=== PATIENT | male | born 1975 | race Asian ===

== ENCOUNTER 2023-03-22 12:55 | Outpatient (REF) | payer OTHER, SELFPAY ==
--- NOTE | ~2023-03-22 | XR_ITS ---
EXAMINATION: Bilateral foot x-ray CLINICAL INFORMATION: Pain COMPARISON: None. TECHNIQUE: 3 views of each foot FINDINGS: Bone alignment is normal. No fracture or dislocation. Joint spaces are normal. There are accessory peroneal ossicles. Small calcaneal spurs. Soft tissues are otherwise normal. XR/XR foot RT 2V IMPRESSION: Small bilateral calcaneal spurs.
--- NOTE | ~2023-03-22 | XR_ITS ---
EXAMINATION: Bilateral foot x-ray CLINICAL INFORMATION: Pain COMPARISON: None. TECHNIQUE: 3 views of each foot FINDINGS: Bone alignment is normal. No fracture or dislocation. Joint spaces are normal. There are accessory peroneal ossicles. Small calcaneal spurs. Soft tissues are otherwise normal. XR/XR foot LT 2V IMPRESSION: Small bilateral calcaneal spurs.
[2023-03-22 15:30] LABS: Erythrocyte Sedimentation Rate 7 MM/HR (0-15)
[2023-03-22 15:34] LABS: Alanine Aminotransferase 20 U/L (0-40); Albumin Level 4.3 g/dL (3.5-5.0); Alkaline Phosphatase 116 U/L (39-117); Anion Gap 14 (12-20); Aspartate Amino Transferase 19 U/L (5-37); Bilirubin Total 0.5 mg/dL (0.0-1.0); Blood Urea Nitrogen 18 mg/dL (9-16); Calcium 9.4 mg/dL (8.4-10.2); Carbon Dioxide 25 mmol/L (22-29); Chloride 107 mmol/L (96-108); Estimated Glomerular Filt Rate > 60; Glucose Random 100 mg/dL (60-115); Potassium 4.5 mmol/L (3.3-5.1); Sodium 141 mmol/L (135-145); Total Protein 7.5 g/dL (6.5-8.0)
[2023-03-22 15:55] LABS: Folate 13.2 ng/mL (> or = 4.0); Vitamin B12 1748 pg/mL (200-900)
[2023-03-24 11:09] LABS: Lyme Abs Screen <0.90 index
== END 2023-03-22 12:56 | disposition home or self-care (01) ==
LOC: HO.LAB 12:55
PROVIDERS: PCP Hospitalist; Visit Provider Psychiatry & Neurology Neurology
DX: G62.9 Polyneuropathy, unspecified (principal); M79.671 Pain in right foot
CPT/HCPCS: 36415; 73620; 80053; 82607; 82746; 85652; 86617; 86618

== ENCOUNTER 2025-02-19 16:15 | Outpatient (REF) | payer OTHER, SELFPAY ==
--- OUTSIDE RECORDS SUMMARY | 2025-02-19 18:34 | XMS_ITS | Continuity of Care Document ---
Author Organization [facility] Address [address] [place] [address] Phone Care Team Providers Care Senior Project Controls Specialist Name Role Phone Unavailable Unavailable Unavailable Procedures Procedure Date OV, New Pt, Level IV Diagnostic Nasal Endoscopy Advance Directives Directive Yes / No Effective Date File Name No Information Encounters Encounter Description Practice Location Reason(s) For Visit Diagnoses Date Provider Providers Copied on Encounter OV, New Pt, Level IV [facility], [address], [place], [place], [id number], tel:[phone] [facility] 8200 9 No Information Family History Family Member Type Diagnosis Age At Onset No Information Payers Payer name Insurance type Covered green party ID Authoriza tion(s) No Information Social History Type Description Quantity Date Captured Comments Sex Male Smoking Status No Information Chief Complaint And Reason For Visit No Information Reason For Referral Reason For Referral No Information History Of Present Illness Encounter Date Complaint History Of Prese nt Illness No Information Functional Status Date Functional Assessmen t No Information Instructions Date Instruction Additional Infor mation No Information Assessments Type Assessment Date No Information Patient Care Teams Name Effective Dates (start - stop) Status Members No Information
--- OUTSIDE RECORDS SUMMARY | 2025-02-19 18:34 | XMS_ITS | Patient Health Record ---
Author Organization [facility] Address [address] [place] [address] Care Team Providers Care Dispensing Optician Name Role Phone HARSH THOMAS Primary Care Provider Jomar Lopez Unavailable [phone] Allergies Allergen (clinical drug ingredient) Drug/Non Drug Allergy documented on EMR Reaction Allergy Type Onset Date Status trazodone Trazodone HCl stomach upset Drug Allergy Active Results Component Value Reference Range Notes Basic Metabolic Panel (7)-30 0000 Reviewed date:06/28/2024 04:30:11 PM Interpretation: Performing Lab:[facility] [place], [facility], Phone - [phone], Director - MDJodry Notes/Report: Glucose 101 70-99 mg/dL BUN 14 6-24 mg/dL Creatinine 0.80 0.76-1.27 mg/dL eGFR 108 >59 mL/min/1.73 BUN/Creatinine Ratio 18 9-20 Sodium 139 134-144 mmol/L Potassium 4.4 3.5-5.2 mmol/L Chloride 102 96-106 mmol/L Carbon Dioxide, Total 24 20-29 mmol/L Lipid Panel-[id number] Reviewed date:06/28/2024 04:32:27 PM Interpretation: Performing Lab:[facility] [place], [address] [place], [place], Phone - [phone], Director - MDJodry Notes/Report: Cholesterol, Total 258 100-199 mg/dL Triglycerides 147 0-149 mg/dL HDL Cholesterol 50 >39 mg/dL VLDL Cholesterol Isacc 27 5-40 mg/dL LDL Chol Calc ([facility]) 181 0-99 mg/dL CBC With Differential/Platel et-[id number] Reviewed date:06/26/2024 12:37:48 PM Interpretation: Performing Lab:[facility], [address] [place] [address], Phone - [phone], Director - Malcolm Notes/Report: WBC 6.9 3.4-10.8 x10E3/uL RBC 5.24 4.14-5.80 x10E6/uL Hemoglobin 14.8 13.0-17.7 g/dL Hematocrit 44.1 37.5-51.0 % MCV 84 79-97 fL MCH 28.2 26.6-33.0 pg MCHC 33.6 31.5-35.7 g/dL RDW 13.4 11.6-15.4 % Platelets 239 150-450 x10E3/uL Neutrophils 48 Not Estab. % Lymphs 41 Not Estab. % Monocytes 7 Not Estab. % Eos 3 Not Estab. % Basos 1 Not Estab. % Neutrophils (Absolute) 3.4 1.4-7.0 x10E3/uL Lymphs (Absolute) 2.9 0.7-3.1 x10E3/uL Monocytes(Absolute) 0.5 0.1-0.9 x10E3/uL Eos (Absolute) 0.2 0.0-0.4 x10E3/uL Baso (Absolute) 0.1 0.0-0.2 x10E3/uL Immature Granulocytes 0 Not Estab. % Immature Grans (Abs) 0.0 0.0-0.1 x10E3/uL Lipid Panel-[id number] Reviewed date:10/21/2024 10:19:05 AM Interpretation: Performing Lab:[facility], [address] [place] [address], Phone - [phone], Director - Malcolm Notes/Report: Cholesterol, Total 257 100-199 mg/dL Triglycerides 206 0-149 mg/dL HDL Cholesterol 44 >39 mg/dL VLDL Cholesterol Isacc 39 5-40 mg/dL LDL Chol Calc ([facility]) 174 0-99 mg/dL Hemoglobin [id number] Reviewed date:10/21/2024 07:49:29 AM Interpretation: Performing Lab:[facility], [address] [place] [address], Phone - [phone], Director - Malcolm Notes/Report: Hemoglobin A1c 6.1 4.8-5.6 % . Prediabetes: 5.7 - 6.4 Diabetes: >6.4 Glycemic control for adults with diabetes: <7.0 Reason For Referral Reason Persistent GERD Diagnosis 1 Gastro-esophageal re flux disease without esophagitis (K21.9) Referral Organization [facility] Referring Provider First Name Jomar Referring Provider Last Name John Referred Provider Specialty Gastroentero mignon General Notes Referral faxed to [facility]. Please call patient to schedule.Magdaleno Christy 12/18/2024 11:47:59 AM > Referral Priority Routine Medications Medication SIG (Take, Route, Frequency, Duration) Notes Start Date End Date Status Omeprazole 40 MG TAKE 1 CAPSULE BY MOUTH EVERY DAY 30 MINUTES BEFORE MORNING MEAL for 90 Active Ezetimibe 10 MG 1 tablet Orally Once a day for 90 days 10/24/2024 Active Mirtazapine 15 MG 1 tablet at bedtime Orally Once a day for 30 day(s) 11/26/2018 Not-Taking Fluticasone Propionate 50 MCG/ACT 1 spray in each nostril Nasally Once a day for 90 days Active Fish Oil 1000 MG 1-2 capsule Orally Once a day Active Claritin 10 MG 1 tablet Orally twic e a day for 10 days 02/10/2021 Not-Taking Amitriptyline HCl 10 MG 1 tablet at bedt diogo Orally Once a day for 30 day(s) 08/09/2022 Active Melatonin 5 MG 1 tablet at bedtime as needed Orally Not-Taking SUMAtriptan Succinate 25 MG TAKE 1 TABLET BY MOUTH TWICE A DAY WITH AT LEAST 2 HOURS BETWEEN DOSES NEEDED FOR 30 DAYS for 24 Not-Taking tiZANidine HCl 4 MG 1 tablet as needed Orally Three times a day for 7 days 07/26/2021 Not-Taking Vitamin B12 100 MCG as directed Orally Once a day Not-Taking Hydrocortisone 2.5 % 1 application Externally Once a day for 30 day(s) 07/26/2021 Not-Taking Atorvastatin Calcium 40 MG TAKE 1 TABLET BY MOUTH EVERY DAY FOR 30 DAYS for 90 Active Diclofenac Sodium 75 MG 1 tablet as need ed Orally Twice a day 06/27/2023 Not-Taking Immunizations Vaccine Route Administration Date Status Comme nts COVID 19 Pfizer Unknown 03/18/2021 Administered COVID 19 Pfizer Unknown 04/08/2021 Administered IPV Unknown 11/28/2018 Administered Meningococcal MCV4O (CVX 114) Unknown 11/28/2018 Admini stered Social History Tobacco Use: Social History Observation Description Date Details (start date - stop date) Former Smoker NA - NA Tobacco Use/Smoking Question Answer Notes Are you a former smoker How long has it been since you last smoked? 5-10 years Alcohol Screen (Audit-C) Question Answer Notes Did you have a drink containing alcohol in the p ast year? No Points 0 Interpretation Negative Problems Problem Type SNOMED Code ICD Code Onset Dates Problem Status W/U Status Risk Notes Problem Mixed hyperlipidemia (322782263) Mixed hyperlipidemia (E78.2) Active confirmed Problem Migraine with aura (7735559) Migraine with aura, not intractable, without status migrainosus (G43.109) Active confirmed Problem Insomnia (110259205) Insomnia, unspecified (G47.00) Active confirmed Problem Gastro-esophageal reflux disease without esophagitis (626858597) Gastro-esophageal reflux disease without esophagitis (K21.9) Active confirmed Problem Abdominal pain (35495560) Unspecified abdominal pain (R10.9) Active confirmed Problem Flatulence (974594752) Flatulence (R14.3) Active confirmed Problem Fatigue (32574013) Other fatigue (R53.83) Active confirmed Problem Impaired fasting glucose (681537327) Impaired fasting glucose (R73.01) Active confirmed Problem History and physical examination, follow-up (393755786) Encounter for follow-up examination after completed treatment for conditions other than malignant neoplasm (Z09) Active confirmed Problem 973263813 Acute pancreatitis (K85.90) Active confirmed Problem History of disease caused by Severe acute respiratory syndrome coronavirus 2 (situation) (1077275283392286 05) Personal history of COVID-19 (Z86.16) Active confirmed Vital Signs Heart Rate 82 /min 01/22/2025 Temperature 98.0 degrees Fahrenheit 01/22/2025 Blood pressure diastolic 74 mm Hg 01/22/2025 Oximetry 97 % 01/22/2025 Height 65.39 in 01/22/2025 Blood pressure systolic 120 mm Hg 01/22/2025 Weight 152.8 lbs 01/22/2025 BMI 25.12 kg/m2 01/22/2025 Encounters Encounter Location Date Provider Diagnosis [facility] [address] [address] 07/02/2024 HARSH THOMAS Encounter for genera l adult medical examination without abnormal findings Z00.00 ; Mixed hyperlipidemia E78.2 ; Gastro-esophageal reflux disease without esophagitis K21.9 and Impaired fasting glucose R73.[address] [place] [address] 10/24/2024 Ghadeer Mazloum Mixed hyperlipidemia E78.2 ; Gastro-esophageal reflux disease without esophagitis K21.9 and Impaired fasting blood sugar R73.[address] [place] [address] 01/22/2025 Ghadeer Mazloum Mixed hyperlipidemia E78.2 ; Gastro-esophageal reflux disease without esophagitis K21.9 ; Impaired fasting glucose R73.01 and Migraine with aura, not intractable, without status migrainosus G43.[address] [place] [address] 2024 HARSH THOMAS Impaired fasting glucose R73.01 and Mixed hyperlipidemia E78.[address] [place] [address] 06/26/2024 Jomar Martium [address] [place] [address] 06/28/2024 HOUSE EDILBERTOL Mixed hyperlipidemia E78.2 and Impaired fasting glucose R73.[address] [place] [address] 10/21/2024 HARSH THOMAS [address] [place] [address] 12/18/2024 HARSH Roderick [address] [place] [address] 12/19/2024 AHRSH THOMAS Assessments Encounter Date Diagnosis (ICD Code) Assessment Notes Treatment Notes Treatment Clinical Notes Section Notes 2024 Impaired fasting glucose (ICD-10 - R73.01) 06/28/2024 Mixed hyperlipidemia (ICD-10 - E78.2) 07/02/2024 Encounter for general adult medical examination without abnormal findings (ICD-10 - Z00.00) Fredy is a 49-year-old gentleman with hyperlipidemia, migraine headaches and GERD here for annual physical. Plan is as follows: Hyperlipidemia. Total cholesterol 258. LDL 181. which is high. Continue Atorvastatin 20 MG at night. He takes fish oil pills. Recheck lipid panel Impaired fasting glucose. Fasting sugars 101. Dietary restrictions, regimental exercise and weight loss advised. check A1c. GERD. Continue Omeprazole 40 MG daily. Diarrhea. Most likely gluten sensitivity because it gets worse with gluten. Advised dietary restrictions Eye screening. 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 Dental screening. He sees dentist regularly. Colon cancer screening. He had his colonoscopy done every 10 years Immunizations. He is up-to-date on his COVID vaccinations. General health concerns discussed with patient. Scribe services used to formulate this note under HIPAA compliance and under [place] law mandated for scribe services. Patient aware of service. Verbal consent and written consent taken from the patient. Patient understands and verbalizes understanding of the scribes services and all questions answered regarding scribes services. Patient agrees to use of scribes services. 01/22/2025 Mixed hyperlipidemia (ICD-10 - E78.2) Fredy is a 49-year-old gentleman with hyperlipidemia, migraine headaches and GERD here for Follow-up. Plan as follows: HLD: - Continue atorvastatin 40 mg at bedtime. Advised on dietary changes. Check lipid panel GERD: - Had recent EGD/C-scope w/o abnormalities. He is currently on max dosage PPI.He is currently on Lactaid and gluten-free diet which she has noticed significant improvements and the chest pain and flatulence. Continue on diet modification. Impaired fasting glucose: - A1c of 6.1. Advised on dietary changes. Check A1c Piriformis syndrome - Reassurance is given. He can start taking Tylenol as needed, discussed doing stretches As well. I have rendered the services for this patient and Dr. Thomas, who did not see the patient but was available upon request on phone 01/22/2025 Gastro-esophageal reflux disease without esophagitis (ICD-10 - K21.9) Fredy is a 49-year-old gentleman with hyperlipidemia, migraine headaches and GERD here for Follow-up. Plan as follows: HLD: - Continue atorvastatin 40 mg at bedtime. Advised on dietary changes. Check lipid panel GERD: - Had recent EGD/C-scope w/o abnormalities. He is currently on max dosage PPI.He is currently on Lactaid and gluten-free diet which she has noticed significant improvements and the chest pain and flatulence. Continue on diet modification. Impaired fasting glucose: - A1c of 6.1. Advised on dietary changes. Check A1c Piriformis syndrome - Reassurance is given. He can start taking Tylenol as needed, discussed doing stretches As well. I have rendered the services for this patient and Dr. Thomas, who did not see the patient but was available upon request on phone 10/24/2024 Mixed hyperlipidemia (ICD-10 - E78.2) Fredy is a 49-year-old gentleman with hyperlipidemia, migraine headaches and GERD here for bloodwork review. Plan as follows: HLD: - Abnormal lipid panel. Increased Atorvastatin to 20mg. Advised on dietary changes. GERD: - Had recent EGD/C-scope w/o abnormalities. He is currently on max dosage PPI. He notices sxs are worse with gluten, tend to occur at night. Impaired fasting glucose: - A1c of 6.1. Advised on dietary changes. I have rendered the services for this patient and Dr. Thomas, who did not see the patient but was available upon request on phone 10/24/2024 Gastro-esophageal reflux disease without esophagitis (ICD-10 - K21.9) Fredy is a 49-year-old gentleman with hyperlipidemia, migraine headaches and GERD here for bloodwork review. Plan as follows: HLD: - Abnormal lipid panel. Increased Atorvastatin to 20mg. Advised on dietary changes. GERD: - Had recent EGD/C-scope w/o abnormalities. He is currently on max dosage PPI. He notices sxs are worse with gluten, tend to occur at night. Impaired fasting glucose: - A1c of 6.1. Advised on dietary changes. I have rendered the services for this patient and Dr. Thomas, who did not see the patient but was available upon request on phone 10/24/2024 Impaired fasting blood sugar (ICD-10 - R73.01) Fredy is a 49-year-old gentleman with hyperlipidemia, migraine headaches and GERD here for bloodwork review. Plan as follows: HLD: - Abnormal lipid panel. Increased Atorvastatin to 20mg. Advised on dietary changes. GERD: - Had recent EGD/C-scope w/o abnormalities. He is currently on max dosage PPI. He notices sxs are worse with gluten, tend to occur at night. Impaired fasting glucose: - A1c of 6.1. Advised on dietary changes. I have rendered the services for this patient and Dr. Thomas, who did not see the patient but was available upon request on phone 01/22/2025 Impaired fasting glucose (ICD-10 - R73.01) Fredy is a 49-year-old gentleman with hyperlipidemia, migraine headaches and GERD here for Follow-up. Plan as follows: HLD: - Continue atorvastatin 40 mg at bedtime. Advised on dietary changes. Check lipid panel GERD: - Had recent EGD/C-scope w/o abnormalities. He is currently on max dosage PPI.He is currently on Lactaid and gluten-free diet which she has noticed significant improvements and the chest pain and flatulence. Continue on diet modification. Impaired fasting glucose: - A1c of 6.1. Advised on dietary changes. Check A1c Piriformis syndrome - Reassurance is given. He can start taking Tylenol as needed, discussed doing stretches As well. I have rendered the services for this patient and Dr. Thomas, who did not see the patient but was available upon request on phone 07/02/2024 Mixed hyperlipidemia (ICD-10 - E78.2) Fredy is a 49-year-old gentleman with hyperlipidemia, migraine headaches and GERD here for annual physical. Plan is as follows: Hyperlipidemia. Total cholesterol 258. LDL 181. which is high. Continue Atorvastatin 20 MG at night. He takes fish oil pills. Recheck lipid panel Impaired fasting glucose. Fasting sugars 101. Dietary restrictions, regimental exercise and weight loss advised. check A1c. GERD. Continue Omeprazole 40 MG daily. Diarrhea. Most likely gluten sensitivity because it gets worse with gluten. Advised dietary restrictions Eye screening. 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 Dental screening. He sees dentist regularly. Colon cancer screening. He had his colonoscopy done every 10 years Immunizations. He is up-to-date on his COVID vaccinations. General health concerns discussed with patient. Scribe services used to formulate this note under HIPAA compliance and under [place] law mandated for scribe services. Patient aware of service. Verbal consent and written consent taken from the patient. Patient understands and verbalizes understanding of the scribes services and all questions answered regarding scribes services. Patient agrees to use of scribes services. 06/28/2024 Impaired fasting glucose (ICD-10 - R73.01) 2024 Mixed hyperlipidemia (ICD-10 - E78.2) 07/02/2024 Gastro-esophageal reflux disease without esophagitis (ICD-10 - K21.9) Fredy is a 49-year-old gentleman with hyperlipidemia, migraine headaches and GERD here for annual physical. Plan is as follows: Hyperlipidemia. Total cholesterol 258. LDL 181. which is high. Continue Atorvastatin 20 MG at night. He takes fish oil pills. Recheck lipid panel Impaired fasting glucose. Fasting sugars 101. Dietary restrictions, regimental exercise and weight loss advised. check A1c. GERD. Continue Omeprazole 40 MG daily. Diarrhea. Most likely gluten sensitivity because it gets worse with gluten. Advised dietary restrictions Eye screening. 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 Dental screening. He sees dentist regularly. Colon cancer screening. He had his colonoscopy done every 10 years Immunizations. He is up-to-date on his COVID vaccinations. General health concerns discussed with patient. Scribe services used to formulate this note under HIPAA compliance and under [place] law mandated for scribe services. Patient aware of service. Verbal consent and written consent taken from the patient. Patient understands and verbalizes understanding of the scribes services and all questions answered regarding scribes services. Patient agrees to use of scribes services. 01/22/2025 Migraine with aura, not intractable, without status migrainosus (ICD-10 - G43.109) Fredy is a 49-year-old gentleman with hyperlipidemia, migraine headaches and GERD here for Follow-up. Plan as follows: HLD: - Continue atorvastatin 40 mg at bedtime. Advised on dietary changes. Check lipid panel GERD: - Had recent EGD/C-scope w/o abnormalities. He is currently on max dosage PPI.He is currently on Lactaid and gluten-free diet which she has noticed significant improvements and the chest pain and flatulence. Continue on diet modification. Impaired fasting glucose: - A1c of 6.1. Advised on dietary changes. Check A1c Piriformis syndrome - Reassurance is given. He can start taking Tylenol as needed, discussed doing stretches As well. I have rendered the services for this patient and Dr. Thomas, who did not see the patient but was available upon request on phone 07/02/2024 Impaired fasting glucose (ICD-10 - R73.01) Fredy is a 49-year-old gentleman with hyperlipidemia, migraine headaches and GERD here for annual physical. Plan is as follows: Hyperlipidemia. Total cholesterol 258. LDL 181. which is high. Continue Atorvastatin 20 MG at night. He takes fish oil pills. Recheck lipid panel Impaired fasting glucose. Fasting sugars 101. Dietary restrictions, regimental exercise and weight loss advised. check A1c. GERD. Continue Omeprazole 40 MG daily. Diarrhea. Most likely gluten sensitivity because it gets worse with gluten. Advised dietary restrictions Eye screening. 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 Dental screening. He sees dentist regularly. Colon cancer screening. He had his colonoscopy done every 10 years Immunizations. He is up-to-date on his COVID vaccinations. General health concerns discussed with patient. Scribe services used to formulate this note under HIPAA compliance and under [place] law mandated for scribe services. Patient aware of service. Verbal consent and written consent taken from the patient. Patient understands and verbalizes understanding of the scribes services and all questions answered regarding scribes services. Patient agrees to use of scribes services. Plan Of Treatment Pending Test Test Name Order Date CBC 10/24/2018 CULTURE, STOOL 07/10/2023 COMPREHENSIVE METABOLIC PANEL 02/27/2020 COMPREHENSIVE METABOLIC PANEL 05/18/2023 H. PYLORI ANTIGEN, STOOL 09/18/2023 HEMOGLOBIN A1C 05/18/2023 HEMOGLOBIN A1C 02/27/2020 LIPID PANEL 02/27/2020 LIPID PANEL 05/18/2023 AMYLASE 10/24/2018 LIPASE 10/24/2018 Basic Metabolic Panel 10/24/2018 Hemoglobin A1C 09/24/2018 Hemoglobin [id number] 01/22/2025 Lipid Panel-[id number] 01/22/2025 Next Appt Details Provider Name:HARSH THOMAS , 02/24/2025 02:30:00 PM, [address] [place] [address], [phone], Provider Name:HARSH THOMAS , 07/08/2025 03:30:00 PM, [address] [facility] [facility] [address], [place], [address], Insurance Providers Payer Name Payer Address Payer Phone Subscriber Number Group Number Insured Name Patient Relationship to Insured Coverage Start Date Coverage End Date [facility]) 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
--- OUTSIDE RECORDS SUMMARY | 2025-02-19 18:34 | XMS_ITS ---
Author Organization [facility] Address [address] [place] [phone] Care Team Providers Care Conservation Agent Name Role Phone WILLIAM HARSH Primary Care Provider REASON FOR VISIT refill Medications Medication SIG (Take, Route, Frequency, Duration) Notes Start Date End Date Status Fluticasone Propionate 50 MCG/ACT SPRAY 1 SPRAY INTO EACH NOSTRIL EVERY DAY for 90 Active Encounters Encounter Location Date Provider Diagnosis [facility] [address] [phone] 12/19/2024 HARSH THOMAS Plan Of Treatment Medication Medication Name Sig Start Date Stop Date Notes Fluticasone Propionate 50 MCG/ACT SPRAY 1 SPRAY INTO EACH NOSTRIL EVERY DAY for 90 Next Appt Details Provider Name:HARSH THOMAS , 02/24/2025 02:30:00 PM, [address] [place] [address], [phone], Provider Name:HARSH THOMAS , 07/08/2025 03:30:00 PM, [address] [place] [address], [phone], Progress Notes * Juan C BELLAhDOB: 5 (49 yo M)Acc No.[id number]:12/19/2024 Patient:?Fredy BELLA :1975???Age:49 Y???Sex:Male Address:[address] [place] [address] katerina, [place] [address] * Refills? Refill Fluticasone Propionate Suspension, 50 MCG/ACT, 48 Milliliter, SPRAY 1 SPRAY INTO EACH NOSTRIL EVERY DAY, 90, Refills=3 * true * Date:? Generated for Nanci matias/Billy/Auroraitting on:?02/19/2025 06:33 PM EDT
--- OUTSIDE RECORDS SUMMARY | 2025-02-19 18:35 | XMS_ITS ---
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 Phone HARSH THOMAS Primary Care Provider Jomar Lopez Unavailable [phone] Allergies Allergen (clinical drug ingredient) Drug/Non Drug Allergy documented on EMR Reaction Allergy Type Onset Date Status trazodone Trazodone HCl stomach upset Drug Allergy Active REASON FOR VISIT 3 month f/u Medications Medication SIG (Take, Route, Frequency, Duration) Notes Start Date End Date Status Mirtazapine 15 MG 1 tablet at bedtime Orally Once a day for 30 day(s) 11/26/2018 Not-Taking Claritin 10 MG 1 tablet Orally twic e a day for 10 days 02/10/2021 Not-Taking Melatonin 5 MG 1 tablet at bedtime as needed Orally Not-Taking SUMAtriptan Succinate 25 MG TAKE 1 TABLET BY MOUTH TWICE A DAY WITH AT LEAST 2 HOURS BETWEEN DOSES NEEDED FOR 30 DAYS for 24 Not-Taking tiZANidine HCl 4 MG 1 tablet as needed Orally Three times a day for 7 days 07/26/2021 Not-Taking Atorvastatin Calcium 40 MG TAKE 1 TABLET BY MOUTH EVERY DAY FOR 30 DAYS for 90 Active Diclofenac Sodium 75 MG 1 tablet as need ed Orally Twice a day 06/27/2023 Not-Taking Omeprazole 40 MG TAKE 1 CAPSULE BY MOUTH EVERY DAY 30 MINUTES BEFORE MORNING MEAL for 90 Active Vitamin B12 100 MCG as directed Orally Once a day Not-Taking Hydrocortisone 2.5 % 1 application Externally Once a day for 30 day(s) 07/26/2021 Not-Taking Ezetimibe 10 MG 1 tablet Orally Once a day for 90 days 10/24/2024 Active Fluticasone Propionate 50 MCG/ACT 1 spray in each nostril Nasally Once a day for 90 days Active Fish Oil 1000 MG 1-2 capsule Orally Once a day Active Amitriptyline HCl 10 MG 1 tablet at bedt diogo Orally Once a day for 30 day(s) 08/09/2022 Active Social History Tobacco Use: Social History Observation [...] ast year? No Points 0 Interpretation Negative Vital Signs Temperature 98.0 degrees Fahrenheit 01/23/20 Oximetry 97 % 01/22/2025 Heart Rate 82 /min 01/22/2025 Blood pressure systolic 120 mm Hg 01/23/20 Blood pressure diastolic 74 mm Hg 025 Weight 152.8 lbs 01/22/2025 BMI 25.12 kg/m2 01/22/2025 Height 65.39 in 01/22/2025 Encounters Encounter Location Date Provider Diagnosis [facility] [address] [phone] 01/22/2025 Jomar Lopez Mixed hyperlipidemia E78.2 ; Gastro-esophageal reflux disease without esophagitis K21.9 ; Impaired fasting glucose R73.01 and Migraine with aura, not intractable, without status migrainosus G43.109 Assessments Encounter Date Diagnosis (ICD Code) Assessment Notes Treatment Notes Treatment Clinical Notes Section Notes 01/22/2025 Mixed hyperlipidemia (ICD-10 - E78.2) Fredy [...] was available upon request on phone 01/22/2025 Migraine with aura, not intractable, without [...] but was available upon request on phone Plan Of Treatment Pending Test Test Name Order Date Hemoglobin [id number] 01/22/2025 Lipid [id number] 01/22/2025 Next Appt Details Follow Up: 6 Months-f/up, Re ason: Provider Name:HARSH THOMAS , 02/24/2025 02:30:00 PM, [address] [place] [address], [phone], Provider Name:HARSH THOMAS , 07/08/2025 03:30:00 PM, [address] [place] [address], [phone], Progress Notes * Maikol BELLAOB: 5 (49 yo M)Acc No.[id number]:01/22/2025 Progress Notes Patient:?Fredy BELLA Appointment Provider:Patsy Lopez :1975???Age:49 Y???Sex:Male Sup ervising Provider:HARSH THOMAS MD Date:01/22/2025 Address:[address] [place], [place] [phone] Pcp:HARSH THOMAS Subjective: * Chief Complaints: * ???1. 3 month f/u. * HPI: ???Internal Medicine:?Fredy is a 49-year-old gentleman with hyperlipidemia, migraine headaches and GERD here for follow-up.?He is in his usual health state. He states that now he is on a strict diet, on lactaid and gluten free Diet. Has Noticed significant improvement and chest pain and Flatulence. He is physically active.? He states that when he lifts heavy material at his job he starts experiencing low back pain.? He also mentions that he has been experiencing pain and the Buttock area, specially with long sitting area. He denies any other active issues. * ROS:?General/Constitutional:?Overall health?Good.?Change in appetite?denies.?Chills?denies.?Fever?denies.?Night sweats?denies.?Sleep disturbance?denies.?Weight gain?denies.?Weight loss?denies.?Neurologic:?Difficulty speaking?denies.?Dizziness?denies.?Gait abnormality?denies.?Headache?denies.?Loss of strength?denies.?Memory loss?denies.?Seizures?denies.?Tingling/Numbness?denies ?.?Ophthalmologic:?Blurred vision?denies.?Discharge?denies.?Dry eye?denies.?Red eye?denies.?ENT:?Change in Voice?Denies.?Cold Symptoms?Denies.?Cough?Denies.?Dizziness?Denies.?Nasal Congestion?Denies.?Otalgia?Denies.?postnasal drip?Denies.?Blocked ear?denies.?Nosebleed?denies.?Snoring?denies.?Cardiovascular:?Diaphoresis?Denies.?Pedal Edema?Denies.?PND (Paroxsymal nocturnal dyspnea)?Denies.?Chest pain?denies.?Difficulty laying flat?denies.?Dyspnea on exertion?denies.?Heart murmur?denies.?Orthopnea?denies.?Respiratory:?Snoring?denies.?Asthma?denies.?Cough?denies.?Shortness of breath with exertion?denies.?Sputum production?denies.?Wheezing?denies.?Gastrointestinal:?Abdominal pain?denies.?Change in bowel habits?denies.?Constipation?denies.?Decreased appetite?denies.?Diarrhea?denies.?Heartburn?admits.?Nausea?denies.?Vomiting?kemi es.?Musculoskeletal:?tingling/numbness?Denies.?myalgias?Denies.?Joint Swelling?Denies.?extremeties?normal.?Arthritis?denies.?Back problems?denies.?Carpal tunnel?denies.?Joint stiffness?denies.?Muscle aches?denies.?Endocrine:?Bowel Changes?Denies.?Breast Discharge?Denies.?poor libido?Denies.?Cold intolerance?denies.?Excessive sweating?denies.?Excessive thirst?denies.?Frequent urination?denies.?Thyroid problems?denies.?Skin:?Bruising?Denies.?Eczema?denies.?Hair changes?denies.?Rash?denies.?Skin lesion(s)?denies.?Psychiatric:?Anxiety?denies.?Depressed mood?denies.?Difficulty sleeping?denies.?Nervous breakdown?denies.?Substance abuse?denies.?Urology:?blood in urine?denies.?burning on urination?denies.?difficulty urinating?denies.?discharge?denies.?dysuria?denies.? * Medical History:?Hypertrigly ceridemia, Acute pancreatitis secondary to hypertriglyceridemia, GERD, H. pylori infection and non-bismuth quadruple therapy, Personal history of COVID-19. * Surgical History:?broken jaw 1997-. * Hospitalization/Major Diagno stic Procedure:?acute pancreatitis 08/29/18. * Family History:?Father: dece ased, lung cancer, diagnosed with Diabetes.?Mother: alive, hypotension, diagnosed with Diabetes.?4 daughter(s) . .? * Social History:?Tobacco Use:?Tobacco Use/Smoking?Are you a?former smoker ?How long has it been since you last smoked??5-10 years ???Drugs/Alcohol:?Drugs?Have you used drugs other than those for medical reasons in the past 12 months??No ?Alcohol Screen (Audit-C)?Did you have a drink containing alcohol in the past year??No ?Points?0 ?Interpretation?Negative ???Miscellaneous:?Living with: spouse. ?Marital status: . 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 * Medications:?Taking Fish Oil 1000 MG Capsule 1-2 capsule Orally Once a day , Taking Amitriptyline HCl 10 MG Tablet 1 tablet at bedtime Orally Once a day , Taking Ezetimibe 10 MG Tablet 1 tablet Orally Once a day , Taking Fluticasone Propionate 50 MCG/ACT Suspension 1 spray in each nostril Nasally Once a day , Taking Omeprazole 40 MG Capsule Delayed Release TAKE 1 CAPSULE BY MOUTH EVERY DAY 30 MINUTES BEFORE MORNING MEAL , Taking Atorvastatin Calcium 40 MG Tablet TAKE 1 TABLET BY MOUTH EVERY DAY FOR 30 DAYS , Not-Taking Diclofenac Sodium 75 MG Tablet Delayed Release 1 tablet as needed Orally Twice a day , Not-Taking Vitamin B12 100 MCG Tablet as directed Orally Once a day , Not-Taking Hydrocortisone 2.5 % Ointment 1 application Externally Once a day , Not-Taking SUMAtriptan Succinate 25 MG Tablet TAKE 1 TABLET BY MOUTH TWICE A DAY WITH AT LEAST 2 HOURS BETWEEN DOSES NEEDED FOR 30 DAYS , Not- Taking tiZANidine HCl 4 MG Tablet 1 tablet as needed Orally Three times a day , Not- Taking Claritin 10 MG Tablet 1 tablet Orally twice a day , Not-Taking Melatonin 5 MG Tablet 1 tablet at bedtime as needed Orally , Not-Taking Mirtazapine 15 MG Tablet 1 tablet at bedtime Orally Once a day , Medication List reviewed and reconciled with the patient * Allergies:?Trazodone HCl: st peralta upset - Allergy. Objective: * Vitals:?Temp:98.0F, Oxygen s at %:97%, HR:82/min, BP:120/74mm Hg, Wt:152.8lbs, BMI:25.12Index, Ht: 65.39 in. * ???Past Orders: ???Lab:Hemoglobin [id number] (Order Date - 06/28/2024) (Collection Date & Time - 10/19/2024 10:17 AM) ? Value Reference Range ?Hemoglobin A1c/ Hemoglobin total 6.1 H 4.8-5.6 - % Lab:Lipid Panel-[id number] * Collection Date 10/19/2024 06/25/2024 Collection Time 10:17 AM 09:00 AM Order Date 06/28/2024 2024 Cholesterol, Total 257?H (Ref Range: 100-199 mg/dL) 258?H (Ref Range: 100-199 mg/dL) Triglycerides 206?H (Ref Range: 0-149 mg/dL) 147 (Ref Range: 0-149 mg/dL) HDL Cholesterol 44 (Ref Range: >39 mg/dL) 50 (Ref Range: >39 mg/dL) VLDL Cholesterol Isacc 39 (Ref Range: 5-40 mg/dL) 27 (Ref Range: 5-40 mg/dL) LDL Chol Calc (NIH) 174?H (Ref Range: 0-99 mg/dL) 181?H (Ref Range: 0-99 mg/dL) ???Lab:CBC With Differential/Platelet-[id number] (Order Date - 2024) (Collection Date & Time - 06/25/2024 09:00 AM)?ValueReference Range ?WBC6.93.4-10.8 - x10E3/uL?RBC5.244.14-5.80 - x10E6/uL ?Zfetdaoucu41.813.0-17.7 - g/dL?Evjzzeddlc78.137.5-51.0 - % ?CJI1753-20 - fL?MCH28.226.6-33.0 - pg?MCHC33.631.5-35.7 - g/dL?RDW13.411.6-15.4 - %?Ddogmonmf297698-373 - x10E3/uL ?Gopqedffavy34Jii Estab. - %?Znzfbb13Uhb Estab. - % ?Jxcpjrzxh7Ifv Estab. - %?Hrn2Dnz Estab. - %?Qiqxt2Pzr Estab. - %?Neutrophils (Absolute)3.41.4-7.0 - x10E3/uL?Lymphs (Absolute)2.90.7-3.1 - x10E3/uL?Monocytes(Absolute)0.50.1-0.9 - x10E3/uL ?Eos (Absolute)0.20.0-0.4 - x10E3/uL?Baso (Absolute)0.10.0-0.2 - x10E3/uL?Immature Yepcjwkkaeqc9Dge Estab. - %?Immature Grans (Abs) 0.00.0-0.1 - x10E3/uL ???Lab:Basic Metabolic Panel [id number] (Order Date - 2024) (Collection Date & Time - 06/25/2024 09:00 AM)?ValueReference Range?Xwtafbw643 H70-99 - mg/dL?EIM109-31 - mg/dL?Creatinine0.800.76-1.27 - mg/dL ?BUN/Creatinine Wuvgt331-68 -?Crknwx530992-933 - mmol/L ?Potassium4.43.5-5.2 - mmol/L?Hrjbddue45936-635 - mmol/L ?Carbon Dioxide, Lnack3469-50 - mmol/L?cZPN320>59 - mL/min/1.73 * Examination: ???General Examination: ?Psychiatry?Normal.?GENERAL APPEARANCE:?Well developed, well nourished, in no acute distress.?MUSCULOSKELETAL:?Normal range of motion,Tender to palpate around the buttock area, No swelling or erythema is noted.?HEAD:?Normocephalic, atraumatic.?EYES:?Pupils equal, round, reactive to light and accommodation, sclera non-icteric.?EARS:?Normal.?ORAL CAVITY:?Normal.?THROAT:?Clear.?OROPHARYNX?Normal.?SINUSES?Normal.?NECK/THYROID:?Neck supple, full range of motion, no cervical lymphadenopathy.?SKIN:?Warm and dry, no suspicious lesions.?HEART:?Normal, S1, S2 normal, regular rate and rhythm, no murmurs, rubs, gallops.?LUNGS:?, no wheezes, rales, rhonchi, clear to auscultation bilaterally.?BREASTS:?__.?ABDOMEN:?Soft, nontender, nondistended, bowel sounds present.?EXTREMITIES:?Normal.?PERIPHERAL PULSES:?Normal.?NEUROLOGIC:?Nonfocal,? appropriate?motor strength normal upper and lower extremities, sensory exam intact.?FEMALE GENITOURINARY:?__.?MALE GENITOURINARY:?__.?Title Manager? .? Assessment: * Assessment: 1.?Mixed hyperlipidemia - E7 8.2 (Primary)???2.?Gastro-esophageal reflux disease without esophagitis - K21.9???3.?Impaired fasting glucose - R73.01???4.?Migraine with aura, not intractable, without status migrainosus - G43.109??? Fredy is a 49-year-old gent james with hyperlipidemia, migraine headaches and GERD here for Follow-up. Plan as follows: HLD: - Continue atorvastatin 40 mg at bedtime. Advised on dietary changes. Check lipid panel GERD: - Had recent EGD/C-scope w/o abnormalities. He is currently on max dosage PPI.He is currently on Lactaid and gluten-free diet which she has noticed significant improvements and the chest pain and flatulence.? ?Continue on diet modification.? Impaired fasting glucose: - A1c of 6.1. Advised on dietary changes. Check A1c Piriformis syndrome - Reassurance is given. He can start taking Tylenol as needed, discussed doing stretches As well. I have rendered the services for this patient and Dr. Thomas, who did not see the patient but was available upon request on phone Plan: * Treatment: * Labs:? * ?Lab: Hemoglobin [id number] * Procedure Codes:?3078F DIAST BP < 80 MM HG, 3074F SYST BP LT 130 MM HG * Follow Up:?6 Months-f/up * Images: * Sign off status: Completed true * Appointment Provider:?Jomar Conn te:?01/22/2025 Generated for Nanci matias/Billy/Jaret on:?02/19/2025 06:34 PM EDT History and Physical Notes * HPI (History of Present Illness) Category Sub-Category Detail Notes Category Not es Internal Medicine Fredy is a 49-year-old gentleman with hyperlipidemia, migraine headaches and GERD here for follow-up. He is in his usual health state. He states that now he is on a strict diet, on lactaid and gluten free Diet. Has Noticed significant improvement and chest pain and Flatulence. He is physically active. He states that when he lifts heavy material at his job he starts experiencing low back pain. He also mentions that he has been experiencing pain and the Buttock area, specially with long sitting area. He denies any other active issues Examination Category Sub-Category Detail Notes Category Not es General Examination GENERAL APPEARANCE: Well dev eloped, well nourished, in no acute distress HEAD: Normocephalic, atrau matic EYES: Pupils equal, round, reactive to light and accommodation, sclera non-icteric EARS: Normal THROAT: Clear NECK/THYROID: Neck supple, full ra nge of motion, no cervical lymphadenopathy HEART: Normal, S1, S2 moo l, regular rate and rhythm, no murmurs, rubs, gallops LUNGS: , no wheezes, rales, rhonchi, clear to auscultation bilaterally ABDOMEN: Soft, nontender, non distended, bowel sounds present NEUROLOGIC: Nonfocal, appropriat e motor strength normal upper and lower extremities, sensory exam intact SKIN: Warm and dry, no candida picious lesions EXTREMITIES: Normal PERIPHERAL PULSES: Normal BREASTS: __ MUSCULOSKELETAL: Normal range of pastor on,Tender to palpate around the buttock area, No swelling or erythema is noted MALE GENITOURINARY: __ FEMALE GENITOURINARY: __ ORAL CAVITY: Normal Psychiatry Normal OROPHARYNX Normal SINUSES Normal Title Manager
--- OUTSIDE RECORDS SUMMARY | 2025-02-19 18:35 | XMS_ITS | Data Portability ---
Author Organization [facility], [employer] Address [address] [place] [address] [place] [address] Care Team Providers Care Cargo Checker Name Role Phone HARSH THOMAS Referring Provider DORON THOMAS Primary Care Provider Assessment Encounter Date Assessment Date Assessment LastModified by Organization Details LastModified Time 02/10/2022 02/10/2022 IMPRESSION Migraine headaches with exacerbation of frequency after COVID 19 diagnosis in September 2021 with an increased frequency from 3-4 migraines annually to 2-3 times weekly up until recent fasting at which point the increase to about 4 times per week. His migraines are characterized by awakening with a milder headache with increasing pain throughout the day. This is sometimes relieved by breakfast. He does have some difficulty with sleep and has been on medication for insomnia in the past but is not presently. There is a component of neck pain/dystonia which is also contributing to migraine pain. He also had tinnitus of the right ear since COVID-19 but does not correlate this with the headache symptoms. His neurologic examination is essentially normal except for slightly decreased sensation under the chin which he attributes to remote mandible surgery in 1998 and decreased hearing of the right ear. We discussed methods of managing migraines which generally includes a preventative treatment and abortive treatment for breakthrough. He has sumatriptan from his PCP. It does sound like he may not use this early enough with the migraine. He has question about its safety versus the potential liver damage that could be associated with the medications and the Excedrin. We discussed that sumatriptan is contraindicated in the setting of strokes and heart attacks but should not affect the liver. I encouraged him to try the sumatriptan earlier in the course of the headaches. We reviewed that there is acetaminophen in Excedrin which is processed through the liver. With respect to the migraine prevention, we talked about titration of oral medications and if this does not work the possibility of future injections or CGRP inhibitors.We discussed the addition of amitriptyline for migraine prevention and that it may help a bit with sleep. We also discussed the cervicogenic component of his migraines. He initially did not want to go to physical therapy because of his work burden but he recognizes that the headaches themselves have contributed to lost work and so he is willing to drive to [place] for at least 1 or 2 visits and possibly more to meet with Sue Burrell who specializes in myofascial release. We discussed that we agree with PCP referral to ENT. PLAN: Fredy Hola Gillespie February 10, 2022 FOR MIGRAINE PREVENTION START physical therapy Sue Burrell [address] [place] [address] Ph. , I have asked her to work with you for at least 1-2 sessions and to give you a home exercise plan recognizing that it is difficult for you to make it to [place]. I will leave it to you and her regarding ongoing treatments. START amitriptyline 10 mg every night. Amitriptyline may cause drowsiness, bladder hesitation, and dry mouth, and increased appetite. If side effects are mild, wait a few days. If side effects are not mild, or if they do not go away after a few days, return to the previous dose at which you did not have side effects. (If you have dry mouth: Try sugarless candy for dry mouth. Alternatively, Biotene, once every morning, zszb-ebs-lqyldje liquid may also help dry mouth) If symptoms resolve at a particular dose, there is no need to increase the dose further. If symptoms do not resolve but there are no side effects, do not stop the medication. We may discuss increasing the medication and follow-up. FOR BREAKTHROUGH MIGRAINE Continue sumatriptan from your PCP. Sumatriptan is most effective if taken early in the course of your migraine, as soon as you have symptoms. Follow-up in 2 weeks for dose adjustment of the amitriptyline. We may do this by telemedicine. I was joined by Dr. Hu during his visit today. Impression and plan were developed with him. I have reviewed chart note, discussed the situation with Janey Moore neurology PA, and agree with note contents and with assessment/plan in particular. I also interviewed the patient and discussed the plan with him. Srinath Hu MD, PhD [facility] kaden Not available 02/14/2022 17:38:54 Plan of Treatment Reminders Order Date Submit Date Provider Last Modified By Organization Details Last Modified Time Details Appointments None recorded. Lab None recorded. Referral neurologic physical therapist referral - Migraines w/ increase after Covid 1221 w/ long h/o neck pain, has had to reduce driving time. Also has assoc nausea vomiting and new R tinnitus. Please eval and treat and give HEP,. May only be able to come for 1-2 sessions d/t work / distance constraints 2021 022 [email or web address] 1 Sue Burrell PT, [address] [place], [address], 12:04:56 Procedures None recorded. Surgeries None recorded. Imaging None recorded. Medication Orders amitriptyli ne 10 mg tablet 2021 022 [id number], [address] [place], [address], 15:52:28 Patient TargetsNo targets recorded. Patient InstructionsNo instructions recorded. Reason for Referral Migraines w/ increase after Covid 12/21 w/ long h/o neck pain, has had to reduce driving time. Also has assoc nausea vomiting and new R tinnitus. Please eval and treat and give HEP,. May only be able to come for 1-2 sessions d/t work / distance constraints Referring Physician: Janey Moore, Neurology, Encounter Date: 02/10/2022 Procedures Surgical History Date Name Laterality Status Provider Name and Address Organization Details Recorded Time 02/10/2022 DATA REVIEW completed JANEY MOORE PA-C [address] [place] [address], [phone], [facility] 02/10/2022 18:10:06 Imaging Results None recorded. Procedure Notes None recorded. Medical Equipment None Reported. Allergies Allergen ID Allergen Name Allergen Category Reaction Reaction Severity Criticality Documentation Date Start Date Code Code System Note Provider Name and Address Organization Details Recorded Time 1396 trazodone medicatio n Not available Not available Not available 02/10/2022 44304 RxNorm Stoma ch upset JANEY MOORE PA-C [address] [place] [address], [phone] , [facility] 17:33:29 Medications Name Sig Start Date Stop Date Status Note LastModified by Organization Details LastModified Time atorvastatin 20 mg tablet TAKE 1 TABLET BY MOUTH EVERY DAY active Not Available Not Available No t Available tizanidine 4 mg tablet TAKE 1 TABLET BY MOUTH THREE TIMES A DAY FOR 7 DAYS active Not Available Not Available N ot Available sumatriptan 25 mg tablet TAKE 1 TABLET BY MOUTH TWICE A DAY WITH AT LEAST 2 HOURS BETWEEN DOSES NEEDED FOR 30 DAYS active Not Available Not Available No t Available prednisone 20 mg tablet TAKE 1 TABLET BY MOUTH EVERY DAY FOR 7 DAYS active Not Available Not Available No t Available omeprazole 40 mg capsule,kun yed release TAKE 1 CAPSULE BY MOUTH EVERY DAY active Not Available Not Available No t Available amitriptylin e 10 mg tablet TAKE 1 TABLET BY MOUTH EVERY DAY NIGHTLY active Not Available Not Available Not Available hydrocortiso ne 2.5 % topical ointment APPLY 1 APPLICATION EXTERNALLY ONCE A DAY active Not Available Not Available N ot Available fluticasone propionate 50 mcg/actuatio n nasal spray,suspen hilton SPRAY 1 SPRAY INTO EACH NOSTRIL EVERY DAY active Not Available Not Available No t Available loratadine 10 mg tablet TAKE 1 TABLET BY MOUTH TWICE A DAY FOR 10 DAYS active Not Available Not Available No t Available DentaGel 1.1 % USE TO BRUSH TEETH BEFORE BEDTIME active Not Available Not Available No t Available Vitamin B12 active Not Available Not A vailable Not Available Vitals Date Recorded Body height Body mass index (BMI) Body weight Respiratory rate Provider Name and Address Organization Details Last Updated DateTime 02/10/2022 170.18 cm 22.9 kg/m2 31071.49 g 12 /min Janey Hartman [facility] 02/10/2022 14:11:49 Social History Question Answer Notes LastModified by Organizat ion Details LastModified Time Tobacco Smoking Status Former Smoker Janey bob [facility] 02/10/2022 14:16:06 What Is Your Level Of Alcohol Consumption? None Information not available 02/10/2022 What Is The Highest Grade Or Level Of School You Have Completed Or The Highest Degree You Have Received? [id number] Information not available 02/10/2022 Which Of Your Hands Is Dominant? Right Information not available 02/10/2022 Do You Use Any Illicit Or Recreational Drugs? No Information not available 02/10/2022 Sex: Unknown Functional Status None recorded. Mental Status None recorded. Family History Relationship Description Onset Age of this Age Resolved Age Notes LastModified by Organization Details LastModified Time Unspecified Relation Headache [email or web address] Not available 02/11/20 14:13:02 Medical History Condition Response Claustrophobia N Head Trauma/Injury N Hospitalizations N High Blood Pressure or Hypertension N Thyroid Problems N Depression N Brain Tumors N Lung Disease N COPD or emphysema N Encephalitis N PTSD N Vitamin B12 deficiency Y Heart Attack ([place]) N Spine Problems N Obstructive Sleep Apnea N Alcoholism N Diabetes N Autoimmune disease N Bleeding Disorder N Arthritis N Cerebral Palsy N Tuberculosis N Developmental Problems N Neck Problems N Cancer N Back Problems N Stroke N Asthma N Heartburn, acid reflux, GERD N Vitamin D Deficiency N Epilepsy/Seizures N Bipolar Disorder N Sleep Disorder N Aneurysm N Hepatitis N Liver Disease N Heart Disease N Fibromyalgia N Headaches Y High Cholesterol or Hyperlipidemia Y Osteoporosis N Kidney Disease N Past Encounters Encounter ID Performer Location Encounter Start Date Encounter Closed Date Diagnosis/Indication Diagnosis SNOMED-CT Code Diagnosis ICD10 Code Diagnosis Note [id number] Srinath Hu MD [facility] [address] [place] [address] [place] [address] 02/10/2022 13:52:25 02/21/2022 15:44:50 Migraine without aura 61596760 G43.009 Spasmodic torticollis 74 604582 G24.3 Health Concerns Section Related Observation LastModified by Organization Detai ls LastModified Time None Recorded Concern Status LastModified by Organization Details LastModified Time None Recorded Advance Directives Directive None Recorded Payers Encounter Date Sequence Insurance Name Policy Number Policy Mix Covered Member ID Mix Member ID Guarantor Name 02/10/2022 1 [facility] (O) [id number] Fredy Abu Jose Miguel [id number] Fredy Simental Jose Miguel Notes Date Note Type Note Provider Name and Address Organization Details Recorded Time 02/10/2022 text/html He presents for initial neurology consultation for evaluation and management of migraine headaches with worsening frequency after September 2021 Covid 19. Medical history is also notable for acute pancreatitis secondary to hypertriglyceridem ia, GERD and H. pylori which has been treated and a remote history of left mandible fixation. 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 He lives with his and his children ages 13, 11 and 7. Migraines began about 16 years ago in 2005 when he was 30 years old. They used to occur about 3-4 times per year. He would feel it in the morning coming on slowly and then it would not go away and he would feel pain behind the right eye and then swirling toward the right back of the head with some moderate dizziness. It would last all day and would not go away until he would vomit and within an hour or so he would feel some relief. Over the last 2 years, prior to the COVID-19 diagnosis in September, he noticed that the headache did not always go away with vomiting. He then had COVID in September 2021 and ever since, he has had increased migraine frequency 2-3 times per week. (They are actually closer to 4 times per week presently but he attributes this to temporary fasting during Ramadan. He does have pretty fernanda meals and post sunset meals and if he is very nauseous and has to eat, will eat and add an additional day of fasting.) There has been associated nausea but not as much as before. He does have an antinausea medication from his PCP which helps, (he is not sure which one). He also saw his PCP and started sumatriptan. He generally wakes up feeling that his head is not right and then as the morning goes on, it gets worse and starts to go behind the eye and that is when he will take the medicine which also includes [id number] Excedrin. He does not take it right away as sometimes the feeling goes away once he has breakfast. When the headaches are severe, he cannot do anything lights bother him. When he does take it, it takes a couple of hours for improvement. He has had to leave work on about 3-4 separate occasions. Prednisone 20 mg for 7 days on 2 separate occasions (the second 1 week course may have been something different) from PCP as abortive treatment but did not have any improvement. He has also had right ear tinnitus since the diagnosis of COVID-19 and has been referred to ENT by his PCP but he has not heard from ENT yet. He has not noted an association with headaches. The tinnitus has been fairly persistent and sometimes is milder when he has the headaches. He does wear ear protection at the machine shop. His intake review of systems is notable for neck pain and it turns out he actually ? s topped driving? 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 He has noticed that he is sometimes has a little bit of relief from some extension and rotation of the neck. He has had some increased neck pain when he lays on the couch and the head is pushed to one side. He has noticed on some mornings that the headache seems to be related to neck pain but not always. He does have some difficulty with sleep at times and had been on mirtazapine in the past for insomnia. He says that his snores but he does not. Srinath Hu MD [address] [place] [address] [place], [phone], [facility] 02/14/2022 17:39:00
--- OUTSIDE RECORDS SUMMARY | 2025-02-19 18:35 | XMS_ITS | Clinical Summary ---
Author Organization [facility] Address [address] [place] [address] Care Team Providers Care Baking Assistant Name Role Phone Danni Arcos MD Primary Care Provider [phone] Medical History Medical History Date Comments Epigastric pain DX:Epigastric pa in Gassiness DX:Gassiness Social History Tobacco Use Types Packs/Day Years Used Date Smoking Tobacco: Never Smokeless Tobacco: Never Alcohol Use Standard Drinks/Week Comments No 0 (1 standard drink = 0.6 oz pur e alcohol) Sex and Gender Information Value Date Recorded Sex Assigned at Not on file Legal Sex Male 9:24 AM EST Gender Identity Not on file Sexual Orientation Not on file Obstetrics History Last Filed Vital Signs Vital Sign Reading Time Taken Comments Blood Pressure 102/66 11/18/2022 1:33 PM EST Pulse 87 11/18/2022 1:33 PM EST Temperature - - Respiratory Rate - - Oxygen Saturation - - Inhaled Oxygen Concentration - - Weight 67.9 kg (149 lb 12.8 oz) 11/18/2022 1:33 PM EST Height 170.2 cm (5' 7 ) 11/18/2022 1:33 PM EST Body Mass Index 23.46 11/18/2022 1:33 PM EST Plan of Treatment Health Maintenance Due Date Last Done Comments DTaP,Tdap,and Td Vaccines (1 - Tdap) 1994 Hepatitis B Vaccines (1 of 3 - 19+ 3-dose series) 1994 IPV Vaccines (2 of 3 - Adult catch-up series) 12/26/2018 11/28/2018 Cholesterol Screening (Lipid Panel) 10/09/2022 Colorectal Cancer Screening: Colonoscopy 10/09/2022 Depression Screening 10/09/2022 HIV Screening 10/09/2022 Hepatitis C Screening 10/09/2022 Social Influencers of Health Screening 10/09/2022 COVID-19 Vaccine (2023-2 5 season) 2024 Meningococcal ACWY Vaccine Aged Out 11/28/2018 N o longer eligible based on patient's age to complete this topic Influenza Vaccine Completed 09/24/2024 HIB Vaccines Aged Out No longer eligi ble based on patient's age to complete this topic HPV Vaccines Aged Out No longer eligi ble based on patient's age to complete this topic Hepatitis A Vaccines Aged Out No long er eligible based on patient's age to complete this topic MMR Vaccines Aged Out No longer eligi ble based on patient's age to complete this topic Meningococcal B Vaccine Aged Out No l onger eligible based on patient's age to complete this topic Pneumococcal Vaccine: Pediat rics (0 to 5 Years) and At-Risk Patients (6 to 64 Years) Aged Out No longer eligi ble based on patient's age to complete this topic RSV Immunization Patients Un sherlyn 20 months Aged Out No longer eligible b ased on patient's age to complete this topic Varicella Vaccines Aged Out No longer eligible based on patient's age to complete this topic Care Teams Baking Assistant Relationship Specialty Start Date End Date Danni Arcos MD [address] [place] [id number] PCP - General Internal Medicine 11/01/18
--- OUTSIDE RECORDS SUMMARY | 2025-02-19 18:35 | XMS_ITS ---
Author Organization [facility] Address [address] [place] [address] Care Team Providers Care Basket Operator Name Role Phone HARSH THOMAS Primary Care Provider REASON FOR VISIT Referral to Gastro Encounters Encounter Location Date Provider Diagnosis [facility] [address] [facility] [address] [place] [address] 12/18/2024 HARSH THOMAS Plan Of Treatment Next Appt Details Provider Name:HARSH THOMAS , 02/24/2025 02:30:00 PM, [address] [place] [address] [address], [place], [address], Provider Name:HARSH THOMAS , 07/08/2025 03:30:00 PM, [address] [place] [address], [place], [address], Progress Notes * Juan C MCKEONhDOB: 5 (49 yo M)Acc No.[id number]:12/18/2024 Patient:?Fredy MCKEON :1975???Age:49 Y???Sex:Male Address:[facility] [place] [address] * true * Date:? Generated for Nanci matias/Billy/eTransmitting on:?02/19/2025 06:34 PM EDT
== END 2025-02-19 16:16 | disposition home or self-care (01) ==
LOC: HO.XRAY 16:15
PROVIDERS: PCP Hospitalist; Visit Provider Psychiatry & Neurology Neurology
DX: M47.812 Spondylosis without myelopathy or radiculopathy, cervical region (principal)
CPT/HCPCS: 72050

== ENCOUNTER → 2025-02-19 16:22 | Outpatient (BNV) | payer OTHER, SELFPAY | PROVIDERS: PCP Hospitalist; Visit Provider Radiology Diagnostic Radiology | DX: M47.812 Spondylosis without myelopathy or radiculopathy, cervical region (principal) | CPT/HCPCS: 72050 ==